=== PATIENT | female | born 1970 | race Caucasian/White ===

== ENCOUNTER 2016-10-21 16:19 | Emergency (ER) | payer BC ==
[~2016-10-21] VITALS: Ht 160 cm; Wt 85.0 kg
[2016-10-21 16:20] VITALS: BP 175/89; PULSE 82; RESP 24; TEMP 98.3; O2SAT 99
--- NOTE | 2016-10-21 16:29 | PD ---
Physical Exam Time Seen by Provider: 16:27 Narrative 46yo F c/o L flank pain started this morning. Hx of kidney stones and sx are similar. +nausea w/o vomiting. Denies fever, hematuria, dysuria. Patient seen in triage. VS reviewed. Awaiting bed placement. Data Data Last Documented VS Vital Signs Date Time Temp Pulse Resp B/P Pulse Ox O2 Delivery O2 Flow Rate FiO2 10/21/16 16:20 98.3 82 24 175/89 99 Room Air MDM Supervised Visit with DAFNE: Aubrie Majano Oct 21, 2016 16:29
[2016-10-21] MEDS ORDERED: SODIUM CHLOR 0.9% 1000 ML INJ 1,000 ML IV ONE (16:44)
[2016-10-21] MEDS ORDERED: ONDANSETRON HCL 4 MG/2 ML VIAL IVP ONE (16:45)
[2016-10-21] MEDS ORDERED: SODIUM CHLORIDE 0.9% FLUSH 10 ML FLUSH IVF PRN (16:45)
[2016-10-21] MEDS ORDERED: KETOROLAC TROMETHAMINE 30 MG/ML (IVP) VIAL IVP ONE (16:45)
--- NOTE | 2016-10-21 16:50 | PD ---
HPI Chief Complaint: Flank/Kidney Pain Time Seen by Provider: 16:46 Travel History International Travel<30 days: No Contact w/Intl Traveler<30days: No Traveled to known affect area: No History of Present Illness HPI 46-year-old female presents to the emergency department for evaluation of left back pain that radiates the left abdomen that started this morning upon awakening. She states she had some mild back pain yesterday, but worsened this morning. Patient does report a history of nephrolithiasis. She states her last episode was approximately year ago. She is currently on vacation from [place]. She denies any fevers or chills. No chest pain or shortness of breath. She reports nausea, but no vomiting. The diarrhea or constipation. She reports history of hysterectomy and . Patient states this pain feels similar to previous kidney stones. Patient has history of hypertension and is on amlodipine. PFSH Past Medical History Cardiovascular Problems: Yes (htn) Social History Alcohol Use: No Tobacco Use: No Substance Use: No Allergies-Medications (Allergen,Severity, Reaction): Coded Allergies: No Known Allergies (Unverified , 10/21/16) Reported Meds & Prescriptions Reported Meds & Active Scripts Active Reported Amlodipine (Amlodipine Besylate) 5 Mg Tab 5 Mg PO DAILY Review of Systems Except as stated in HPI: all other systems reviewed are Neg Physical Exam Narrative GENERAL: Well-nourished, well-developed female patient, ambulatory. Afebrile. SKIN: Focused skin assessment warm/dry. HEAD: Normocephalic. Atraumatic EYES: No scleral icterus. No injection or drainage. NECK: Supple, trachea midline. No JVD or lymphadenopathy. CARDIOVASCULAR: Regular rate and rhythm without murmurs, gallops, or rubs. RESPIRATORY: Breath sounds equal bilaterally. No accessory muscle use. Lungs sounds are clear to auscultation. GASTROINTESTINAL: Abdomen soft and nondistended. Left lower quadrant tenderness to palpation. MUSCULOSKELETAL: No cyanosis, or edema. BACK: Nontender without obvious deformity. No CVA tenderness. Left low back pain to palpation. Data Data Last Documented VS Vital Signs Date Time Temp Pulse Resp B/P Pulse Ox O2 Delivery O2 Flow Rate FiO2 10/21/16 18:48 86 20 171/98 100 Room Air 10/21/16 16:20 98.3 Orders Complete Blood Count With Diff (10/21/16 16:44) Urinalysis - C+S If Indicated (10/21/16 16:44) Ct Abd/Pel W/O Iv Contrast (10/21/16 16:44) Ecg Monitoring (10/21/16 16:44) Iv Access Insert/Monitor (10/21/16 16:44) Ketorolac Inj (Toradol Inj) (10/21/16 16:45) Ondansetron Inj (Zofran Inj) (10/21/16 16:45) Sodium Chloride 0.9% Flush (Ns Flush) (10/21/16 16:45) Sodium Chlor 0.9% 1000 Ml Inj (Ns 1000 M (10/21/16 16:44) Comprehensive Metabolic Panel (10/21/16 16:44) Lipase (10/21/16 16:44) Morphine Inj (Morphine Inj) (10/21/16 18:00) Tamsulosin (Flomax) (10/21/16 19:00) Labs Laboratory Tests Test 10/21/16 10/21/16 17:00 18:20 White Blood Count 8.9 TH/MM3 Red Blood Count 4.21 MIL/MM3 Hemoglobin 12.0 GM/DL Hematocrit 37.4 % Mean Corpuscular Volume 88.7 FL Mean Corpuscular Hemoglobin 28.4 PG Mean Corpuscular Hemoglobin 32.0 % Concent Red Cell Distribution Width 13.3 % Platelet Count 227 TH/MM3 Mean Platelet Volume 9.8 FL Neutrophils (%) (Auto) 84.6 % Lymphocytes (%) (Auto) 9.4 % Monocytes (%) (Auto) 5.2 % Eosinophils (%) (Auto) 0.2 % Basophils (%) (Auto) 0.6 % Neutrophils # (Auto) 7.6 TH/MM3 Lymphocytes # (Auto) 0.8 TH/MM3 Monocytes # (Auto) 0.5 TH/MM3 Eosinophils # (Auto) 0.0 TH/MM3 Basophils # (Auto) 0.1 TH/MM3 CBC Comment DIFF FINAL Differential Comment Sodium Level 139 MEQ/L Potassium Level 3.7 MEQ/L Chloride Level 103 MEQ/L Carbon Dioxide Level 28.0 MEQ/L Anion Gap 8 MEQ/L Blood Urea Nitrogen 11 MG/DL Creatinine 0.84 MG/DL Estimat Glomerular Filtration 73 ML/MIN Rate Random Glucose 104 MG/DL Calcium Level 8.4 MG/DL Total Bilirubin 0.4 MG/DL Aspartate Amino Transf 16 U/L (AST/SGOT) Alanine Aminotransferase 25 U/L (ALT/SGPT) Alkaline Phosphatase 72 U/L Total Protein 7.4 GM/DL Albumin 3.7 GM/DL Lipase 213 U/L Urine Color YELLOW Urine Turbidity HAZY Urine pH 7.0 Urine Specific Tok 1.011 Urine Protein NEG mg/dL Urine Glucose (UA) NEG mg/dL Urine Ketones TRACE mg/dL Urine Occult Blood MOD Urine Nitrite NEG Urine Bilirubin NEG Urine Urobilinogen LESS THAN 2.0 MG/DL Urine Leukocyte Esterase NEG Urine RBC 50 /hpf Urine Squamous Epithelial 4 /hpf Cells Urine Mucus FEW /lpf Microscopic Urinalysis Comment CULT NOT INDICATED MDM Medical Decision Making Medical Screen Exam Complete: Yes Emergency Medical Condition: Yes Medical Record Reviewed: Yes Interpretation(s) Last Impressions Abdomen/Pelvis CT 10/21/16 1644 Signed Impressions: Service Date/Time: Friday, October 21, 2016 17:10 - CONCLUSION: 1. 5 mm stone in the distal left ureter at the left UVJ causing hydronephrosis to the left kidney. 2. Multiple tiny nonobstructing bilateral renal calculi. Martín Buchanan MD Differential Diagnosis nephrolithiasis vs. UTI vs. pyelonephritis vs. diverticulitis Narrative Course 46 year old female presents to the emergency department for evaluation of left back pain, left lower quadrant abdominal pain that started this morning, consistent with previous nephrolithiasis. CBC, CMP, lipase, UA are ordered and pending. CT abdomen/pelvis is ordered and pending. Patient is given NS 1 liter IV bolus, Zofran 4 mg IV, Toradol 30 mg IV. CBC shows no acute abnormality. CMP shows normal kidney function BUN 11, creatinine 0.84. Lipase is 213. UA shows trace ketones, moderate occult blood , [address] abdomen/pelvis shows 5 mm stone in the distal left ureter at the left UVJ causing hydronephrosis to the left kidney; Multiple tiny nonobstructing bilateral renal calculi. Patient received morphine 4 mg IV for further pain. There is no evidence of infected stone within normal WBC count, normal UA. After morphine, the patient states her pain is relieved. She'll be given Flomax 0.4 mg by mouth the emergency department. She will be discharged prescription for Lortab, Zofran, Flomax. She is encouraged to follow-up with her urologist. She is to return for any acute worsening of symptoms. Patient verbalizes agreement and understanding. I discussed the findings with my attending physician, Dr. Crane, who agrees with plan and disposition. Diagnosis Primary Impression: Nephrolithiasis Referrals: Urologist call for appointment Patient Instructions: General Instructions, Kidney Stones (ED) Additional Instructions: Take Lortab as directed as needed for pain. Caution this can make you drowsy so do not drive after taking. Take Zofran as instructed as needed for nausea/vomiting. Take Flomax as directed. Follow-up With your urologist. Return to the emergency department for any acute worsening of symptoms. Med/Other Pt SpecificInfo: Prescription(s) given Scripts Ondansetron Odt 4 Mg Tab4 Mg SL Q6HR PRN (Nausea/Vomiting) #16 TAB Ref 0 Prov:Yudith Aguilar 10/21/16 Tamsulosin (Flomax)0.4 Mg Cap0.4 Mg PO HS #10 CAP Ref 0 Prov:Yudith Aguilar 10/21/16 Hydrocodone-Acetaminophen (Lortab)5-325 Mg Tab1 Tab PO Q6H PRN (PAIN) #16 TAB Ref 0 Prov:Juan Jose Crane MD 10/21/16 Disposition: 01 DISCHARGE HOME Condition: Stable Yudith Aguilar Oct 21, 2016 16:50
[2016-10-21] MEDS ORDERED: AMLO5TAB2 PO (17:07)
--- NOTE | 2016-10-21 17:25 | RADRPT ---
EXAM DATE/TIME: 10/21/2016 17:10 [facility] COMPARISON: No previous studies available for comparison. INDICATIONS : Evaluate for left flank pain. ORAL CONTRAST: No oral contrast ingested. RADIATION DOSE: 8.43 CTDIvol (mGy) MEDICAL HISTORY : Renal calculi. Cardiovascular disease Hypertension. SURGICAL HISTORY : Hysterectomy. ENCOUNTER: Initial ACUITY: 1 day PAIN SCALE: 5/10 LOCATION: Left lower quadrant TECHNIQUE: Volumetric scanning of the abdomen and pelvis was performed. Using automated exposure control and ad justment of the mA and/or kV according to patient size, radiation dose was kept as low as reasonably achievable to obtain optimal diagnostic quality images. DICOM format image data is available electro nically for review and comparison. The lack of IV contrast limits the diagnosis for certain organ pa thology. FINDINGS: LOWER LUNGS: The visualized lower lungs are clear. LIVER: Homogeneous density without lesion. There is no dilation of the biliary tree. No gallbladder. SPLEEN: Normal size without lesion. PANCREAS: Within normal limits. KIDNEYS: There is hydronephrosis of the left collecting system with perinephric edema. There are several tiny nonobstructing stones in both kidneys. There is no hydronephrosis of the right kidney. The left urete r is dilated. There is a 5 mm calcification in the distal left ureter at the left UVJ. ADRENAL GLANDS: Within normal limits. VASCULAR: There is no aortic aneurysm. BOWEL/MESENTERY: The stomach, small bowel, and colon demonstrate no acute abnormality. There is no free intraperitone al air or fluid. ABDOMINAL WALL: Within normal limits. RETROPERITONEUM: There is no lymphadenopathy. BLADDER: No wall thickening or mass. REPRODUCTIVE: Within normal limits. INGUINAL: There is no lymphadenopathy or hernia. MUSCULOSKELETAL: Within normal limits for patient age. CONCLUSION: 1. 5 mm stone in the distal left ureter at the left UVJ causing hydronephrosis to the left kidney. 2. Multiple tiny nonobstructing bilateral renal calculi. Martín Buchanan MD on October 21, 2016 at 17:21 Board Certified Radiologist. This report was verified electronically.
[2016-10-21 17:31] LABS: AUTOMATED NEUTROPHIL # 7.6 TH/MM3 (1.8-7.7); BASOPHIL # 0.1 TH/MM3 (0-0.2); BASOPHIL % 0.6 % (0.0-2.0); EOSINOPHIL % 0.2 % (0.0-4.0); HEMATOCRIT 37.4 % (35.0-46.0); HEMO FLAGS DIFF FINAL; LYMPH % 9.4 % (9.0-44.0); LYMPHOCYTE # 0.8 TH/MM3 (1.0-4.8); MEAN CELL VOLUME 88.7 FL (80.0-100.0); MEAN CORPUSCULAR HEMOGLOBIN 28.4 PG (27.0-34.0); MONO % 5.2 % (0.0-8.0); NEUT % 84.6 % (16.0-70.0); PLATELET COUNT 227 TH/MM3 (150-450); RED BLOOD COUNT 4.21 MIL/MM3 (4.00-5.30); RED CELL DISTRIBUTION WIDTH 13.3 % (11.6-17.2); WHITE BLOOD COUNT 8.9 TH/MM3 (4.0-11.0)
[2016-10-21] MEDS ORDERED: MORPHINE SULFATE 4 MG/ML INJ IV PUSH ONE (18:00)
[2016-10-21 18:27] LABS: ALT (GPT) 25 U/L (10-53); ANION GAP 8 MEQ/L (5-15); AST (GOT) 16 U/L (15-37); BLOOD UREA NITROGEN 11 MG/DL (7-18); CHLORIDE 103 MEQ/L (98-107); GLOMERULAR FILTRATION RATE 73 ML/MIN (>89); POTASSIUM 3.7 MEQ/L (3.5-5.1); SODIUM (NA) 139 MEQ/L (136-145)
[2016-10-21 18:29] LABS: ALKALINE PHOSPHATASE 72 U/L (45-117); TOTAL BILIRUBIN ADULT 0.4 MG/DL (0.2-1.0)
[2016-10-21 18:32] LABS: BLOOD, URINE MOD (NEG); COMMENT (UR) CULT NOT INDICATED; CULTURE IF INDICATED CULT NOT INDICATED; GLUCOSE,URINE NEG (NEG); KETONE, URINE TRACE mg/dL (NEG); MUCUS URINE FEW /lpf (OCC); NITRITE,URINE NEG (NEG); SQUAMOUS EPITHELIAL CELL URINE 4 /hpf (0-5); URINE COLOR YELLOW (YELLW/STRAW)
[2016-10-21 18:48] VITALS: BP 171/98; PULSE 86; RESP 20; O2SAT 100
[2016-10-21] MEDS ORDERED: HYDR-3533 PO (18:57)
[2016-10-21] MEDS ORDERED: TAMSULOSIN HCL 0.4 MG CAP PO ONE (19:00)
[2016-10-21] MEDS ORDERED: ONDA4TAB7 SL (19:03)
[2016-10-21] MEDS ORDERED: TAMS5CAP PO (19:03)
== END 2016-10-21 19:28 | disposition home or self-care (01) ==
LOC: NEPD 16:19
DX: N20.0 Calculus of kidney (principal); N13.30 Unspecified hydronephrosis; Z79.899 Other long term (current) drug therapy
CPT/HCPCS: 74176; 80053; 81001; 83690; 85025; 96361; 96374; 96375; 99285; J1885; J2270; J2405; J7030